=== PATIENT | female | born 1940 | race African-American/Black ===

== ENCOUNTER → 2016-09-24 | Day surgery (SDC) | payer MEDICARE ==
[~2016-09-24] MED LIST: 1-ME1LIQ PO; ASPI81TA82 PO; BUPIVACAINE HCL PF 0.5% 10 ML VIAL ONE; CLINDAMYCIN PHOS 900 MG/6 ML VIAL ONE; GLIP5 PO; HYDR50TA15 PO; IRON325T2 PO; ISOS30TA3 PO; LABE300T PO; LACTATED RINGER'S 1000 ML INJ 1,000 ML ONE; LEVO.025 PO; LISI-366 PO; MIDAZOLAM HCL 2 MG/2 ML VIAL ONE; PLAV75TA PO; PRAV40TA2 PO; PROPOFOL 200 MG/20 ML AMP IV ONE; TRAM50TA PO; oxyCODONE/ACETAMINOPHEN 5 MG/325 MG TAB ONE
--- NOTE | 2016-09-24 15:17 | TN ---
cc: MARGARITA RIOS DATE OF SURGERY: 09/24/2016 PREOPERATIVE DIAGNOSIS Infected seroma cavity of the right breast. POSTOPERATIVE DIAGNOSIS Infected seroma cavity of the right breast. PROCEDURE PERFORMED Incision and drainage of infected seroma. ATTENDING SURGEON Margarita Rios ANESTHESIA General via LMA device. INDICATION The patient is a 76-year-old -[place] female with diabetes, a high BMI, and coronary artery disease. 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 This was treated locally with packing but because of ongoing drainage and persistent symptoms, she now presents for operative I&D. FINDINGS At the time of surgery a large lumpectomy cavity was identified which was 4 x 4 cm. There was no necrotic tissue present but a large quantity of malodorous purulent fluid was noted. PROCEDURE After informed consent was obtained and site verification was performed, the patient was brought to the major operating room where she was given a single dose of IV clindamycin due to penicillin allergy and sequential compression hose were placed. She underwent general anesthesia via an LMA device and the right breast was prepped and draped in sterile fashion. The radial 6 o'clock incision was opened slightly and this incision was enlarged sharply. Copious drainage of malodorous purulent fluid was then noted and the incision was extended to admit three fingers and copious irrigation and debridement of the cavity was performed until there was no residual drainage. Irrigation and suctioning was also performed and the cavity was packed with 1/4 inch iodoform gauze. ABD pads were applied. The patient tolerated the procedure well with an estimated blood loss of less than 20 cc. She was extubated in the operating room and brought to the recovery room in good condition. All sponge and needle counts were correct at the conclusion of the case. MD OLGA Morgan/LATOYA /2:59 PM /3:11 PM
== END | disposition home or self-care (01) ==
LOC: ESDC 12:44
PROVIDERS: ATTEND Surgery
DX: T81.4XXA Infection following a procedure, initial encounter (principal); L76.34 Postprocedural seroma of skin and subcutaneous tissue following other procedure; I25.10 Atherosclerotic heart disease of native coronary artery without angina pectoris; E11.9 Type 2 diabetes mellitus without complications; D05.11 Intraductal carcinoma in situ of right breast; Z79.84 Long term (current) use of oral hypoglycemic drugs
CPT/HCPCS: 00400; 10180; 82948; J2250; J3010; J7120